=== PATIENT | female | born 2000 ===

== ENCOUNTER 2020-03-12 15:26 | Emergency (ER) | payer SELFPAY ==
[~2020-03-12] VITALS: Ht 167.6 cm; Wt 59.2 kg
[2020-03-12 15:50] VITALS: BP 104/50
--- NOTE | 2020-03-12 16:34 | NUR ---
Esme capellan in [facility] - 03/12/20 at 1637 by GIL Pt to room from lobby.
--- NOTE | 2020-03-12 16:37 | NUR ---
No answer from lobby.
--- NOTE | 2020-03-12 16:52 | NUR ---
no answer from lobby.
--- NOTE | 2020-03-12 17:19 | NUR ---
No answer from lobby.
== END 2020-03-12 17:21 | disposition left against medical advice (07) ==
LOC: ED 17:00
DX: R10.9 Unspecified abdominal pain (principal); Z53.21 Procedure and treatment not carried out due to patient leaving prior to being seen by health care provider